=== PATIENT | female | born 1995 | race Two or more races ===

== ENCOUNTER 2017-12-06 11:21 | Outpatient (CLI) | payer OTHER ==
[~2017-12-06 11:21] MED LIST: AZITHROMYCIN500 MG
== END 2017-12-06 13:51 | disposition home or self-care (01) ==
LOC: RAD 501 11:21
DX: S93.431A Sprain of tibiofibular ligament of right ankle, initial encounter (principal)

== ENCOUNTER 2019-03-19 11:22 | Outpatient (CLI) | payer OTHER | END 2019-03-19 11:43 | disposition home or self-care (01) | LOC: SONOGRAMA 11:22 | DX: R04.0 Epistaxis (principal); D68.8 Other specified coagulation defects; J32.8 Other chronic sinusitis; Z13.29 Encounter for screening for other suspected endocrine disorder; E66.8 Other obesity ==

== ENCOUNTER → 2019-03-20 | Emergency (ER) | payer OTHER ==
[~2019-03-20] VITALS: Ht 165.1 cm; Wt 77.1 kg
== END | disposition left against medical advice (07) ==
LOC: ER 13:11
DX: Z53.20 Procedure and treatment not carried out because of patient's decision for unspecified reasons (principal)

== ENCOUNTER → 2019-03-21 | Emergency (ER) | payer OTHER | END | disposition left against medical advice (07) | LOC: ER 08:17 | DX: Z53.20 Procedure and treatment not carried out because of patient's decision for unspecified reasons (principal) ==